=== PATIENT | male | born 1995 | race Caucasian/White ===

== ENCOUNTER 2017-06-02 23:52 | Emergency (ER) | payer OTHER ==
[~2017-06-02] VITALS: Ht 177.8 cm; Wt 74.0 kg
[2017-06-03 00:08] VITALS: TEMP 37.2; Ht 177.8 cm; Wt 74.0 kg
--- NOTE | 2017-06-03 00:57 | EMERGENCY ROOM VISIT NOTE ---
History Report prepared by Luna: Joshua Portillo Under the Supervision of: Dr. Gudelia Soria D.O. First contact with patient: 00:37 Chief Complaint: NASAL PAIN/INJURY Stated Complaint: POSSIBLE BROKEN NOSE History of Present Illness The patient is a 21 year old male who presents to the Emergency Room with complaints of a sudden nasal injury occurring prior to arrival. He states that he has minimal pain currently, though he states that he feels like his nose is crooked. The patient states that he was playing a basketball game, and he got a shoulder to the nose, and he felt a crack. He states that he bled a little bit afterwards, though it stopped. The patient denies any eye pain, loss of consciousness, and neck pain. He reports that he is able to breathe through his nose. Source of History: patient Onset: prior to arrival Position: nose Symptom Intensity: minimal Timing: other (sudden) Associated Symptoms: No LOC, No neck pain Note: Associated symptoms: bleeding Review of Systems See HPI for pertinent positives & negatives. A total of 6 systems reviewed and were otherwise negative. Past Medical & Surgical Medical Problems: (1) No chronic problems Family History Patient reports no known family medical history. Social History Smoking Status: Current Every Day Smoker Marital Status: single Housing Status: lives with family Occupation Status: [employer] Current/Historical Medications No Active Prescriptions or Reported Meds Allergies Coded Allergies: No Known Allergies (Unverified , 06/03/17) Physical Exam Vital Signs Date Time Temp Pulse Resp B/P (MAP) Pulse Ox O2 Delivery O2 Flow Rate FiO2 06/03/17 01:50 76 20 128/70 98 Room Air 06/03/17 00:08 37.2 88 16 132/87 99 Room Air Physical Exam HEENT: Head - normocephalic. Pupils are equal, round, and reactive to light. Extraocular eye muscles are intact and sclera are anicteric. Ears - bilaterally patent canals with no evidence of hemotympanum. Nose - Nose was crooked. No septal hematoma. Moist nasal mucosa without evidence of discharge. Mouth - moist buccal mucosa with no trauma to the teeth or signs of malocclusion. Neck: The neck is supple and there is no pain to palpation over the posterior cervical spine and no obvious step-offs or deformities. There is no JVD or tracheal deviation. Medical Decision & Procedures ER Provider Diagnostic Interpretation: X-ray results as stated below per interpretation by me: Nasal X-ray: No obvious fracture. ED Course 0050: Past medical records reviewed. The patient was evaluated in room A3. A complete history and physical exam was performed. The nose appeared somewhat crooked. There was minimal pain with manipulation of the nose. I reduced the nose. The patient went for x-ray of the nose. 0210: Upon reevaluation, doing okay. I discussed findings and results with him. He verbalized agreement of the treatment plan. He was discharged home. Medical Decision The patient is a 21 year old male who presents to the ED with nasal pain. Differential diagnosis includes nasal bone fracture, nasal bone contusion, and nasal cartilage injury. The patient suffered trauma to his nose while playing basketball. There was no blood from the nose. However, the nose did appear crooked following this injury. I was easily able to manipulate the nose and reduce it into alignment. There is no septal hematoma noted. X-ray showed no obvious fracture. The patient was encouraged to apply ice to the bridge of the nose where there was some slight swelling. I have encouraged him to avoid blowing his nose over the next 24-48 hours. If he has any residual symptoms, he can follow up with the [facility]. Medication Reconcilliation Current Medication List: was personally reviewed by me Blood Pressure Screening Patient's blood pressure: Normal blood pressure Impression Primary Impression: Nasal trauma Scribe Attestation The scribe's documentation has been prepared under my direction and personally reviewed by me in its entirety. I confirm that the note above accurately reflects all work, treatment, procedures, and medical decision making performed by me. Departure Information Dispostion Home / Self-Care Prescriptions No Active Prescriptions or Reported Meds Referrals No Doctor, Assigned (PCP) Forms HOME CARE DOCUMENTATION FORM, IMPORTANT VISIT INFORMATION, WORK / SCHOOL INSTRUCTIONS Patient Instructions My [facility] [employer] Additional Instructions Rest with your head elevated to minimize swelling Apply ice to the nose. Follow up with S if nose appears crooked Problem Qualifiers Primary Impression: Nasal trauma Encounter type: initial encounter Qualified Codes: S09.92XA - Unspecified injury of nose, initial encounter
[2017-06-03 01:50] VITALS: BP 128/70; PULSE 76; O2SAT 98
--- NOTE | 2017-06-03 06:49 | DIAGNOSTIC IMAGING REPORT ---
NASAL BONES MIN 3 VIEWS CLINICAL HISTORY: Nasal pain status post trauma COMPARISON STUDY: No previous studies for comparison. FINDINGS: A nondisplaced nasal septal fracture is suspected. There is no orbital emphysema. There are no air-fluid levels within the maxilla sinuses. There is mild right maxillary sinus mucosal thickening IMPRESSION: Suspected nondisplaced nasal septal fracture Electronically signed by: Paul Celaya M.D. 06/03/2017 6:48 AM Dictated Date/Time: 06/03/2017 6:47 AM
== END 2017-06-03 02:28 | disposition home or self-care (01) ==
LOC: C.EDB 23:54 → C.EDA 06-03 02:28
DX: S09.92XA Unspecified injury of nose, initial encounter (principal); W22.8XXA Striking against or struck by other objects, initial encounter; Y93.67 Activity, basketball; F17.200 Nicotine dependence, unspecified, uncomplicated